=== PATIENT | female | born 1940 | race Caucasian/White ===

== ENCOUNTER 2022-04-21 15:17 | Inpatient (IN) | payer MEDICARE, BC ==
[~2022-04-21 15:17] MED LIST: Iopamidol-370 76% 500 ML 1 ML ONE
[2022-04-21 16:45] LABS: Hemoglobin 14.3 g/dL (12.0-16.0); Mean Corpuscular HGB CONC 33.5 g/dL (32.0-36.0); Mean Corpuscular Hemoglobin 30.9 pg (27.0-31.0); Mean Corpuscular Volume 92.3 fL (78.0-98.0); Mean Platelet Volume 9.3 fL (7.4-10.4); Platelet Count 159 thou/uL (130-400); RBC Distribution Width 13.1 % (11.5-14.5); Red Blood Cell (RBC) Count 4.63 mill/uL (4.20-5.40); White Blood Cell (WBC) Count 11.7 thou/uL (4.8-10.8)
[2022-04-21 16:59] LABS: ALT (SGPT) 287 U/L (8-55); AST (SGOT) 219 U/L (5-34); Albumin 3.7 g/dL (3.4-4.8); Alkaline Phosphatase 62 U/L (40-110); Anion Gap 19 mmol/L (10-20); BUN (Urea Nitrogen) 89 mg/dL (9.8-20.1); Bilirubin, Total 1.1 mg/dL (0.2-1.2); CK (CPK) 2850 U/L (29-168); Calc. Creatinine Clearance 0 mL/min (70-130); Calcium 9.3 mg/dL (7.8-10.44); Carbon Dioxide 16 mmol/L (23-31); Chloride 109 mmol/L (98-107); Estimated GFR 10; Globulin 2.8 g/dL (2.4-3.5); Glucose 98 mg/dL (83-110); Potassium 4.2 mmol/L (3.5-5.1); Protein, Total 6.5 g/dL (5.8-8.1); Sodium 140 mmol/L (136-145)
[2022-04-21 17:01] LABS: Acetaminophen Less than 10.0 mcg/mL (10.0-30.0); Alcohol Less than 10 mg/dL (Less than 10); Salicylate Less than 8.0 mg/dL (15.0-30.0)
[2022-04-21 17:10] LABS: MDiff Complete? YES
[2022-04-21 17:11] LABS: Band 13 % (5-11); Burr Cells SLIGHT = 2-5 cells (100X) (0-1/hpf); Lymphocytes 10 % (21-51); Monocytes 3 % (0-10); Neutrophil 73 % (42-75); Platelet Morphology Comment Appears Adequate; Polychromasia SLIGHT = 2-3 cells (100X) (0-2/hpf); Reactive Lymphocytes 1 % (0-10)
[2022-04-21 17:36] LABS: CKMB 45.6 ng/mL (0-6.6)
[2022-04-21] MEDS ORDERED: Morphine 4 MG/ML VIAL ONE (19:08)
[2022-04-21] MEDS ORDERED: Ondansetron PF 4 MG/2 ML Vial ONE (19:08)
[2022-04-21 22:44] LABS: Critical Call Chem Troponin I RESULT DECREASING; Troponin I 1.472 ng/mL (< 0.028)
[2022-04-21] MEDS ORDERED: Acetaminophen 325 MG TAB PO PRN (23:18)
[2022-04-21] MEDS ORDERED: Ondansetron ODT 4 MG TAB PO PRN (23:18)
[2022-04-21] MEDS ORDERED: Ondansetron PF 4 MG/2 ML Vial IVP PRN (23:18)
[2022-04-21] MEDS ORDERED: Morphine 4 MG/ML VIAL SLOW IVP PRN (23:20)
[2022-04-21 23:35] LABS: Amphetamine Not Detected (NotDetected); Barbiturates Screen Not Detected (NotDetected); Benzodiazepine Screen Not Detected (NotDetected); Cocaine Metabolite Screen Not Detected (NotDetected); Methadone Not Detected (NotDetected); Methamphetamine Not Detected (NotDetected); Opiate Screen Detected (NotDetected); Oxycodone Screen Not Detected (NotDetected); Phencyclidine (PCP) Not Detected (NotDetected); THC/Cannabinoid Screen Not Detected (NotDetected); Tricyclic Screen Not Detected (NotDetected)
[2022-04-21 23:43] LABS: Bacteria/HPF None Seen HPF (None Seen); Bilirubin Negative (Negative); Blood, Urine 3+ (Negative); Clarity Clear (Clear); Glucose, Urine (Dipstick) 100 mg/dL (Negative); Ketone, Urine Trace mg/dL (Negative); Leukocyte Negative Leu/uL (Negative); Nitrite Negative (Negative); Protein, Urine (Dipstick) 50 mg/dL (Neg-Trace); Specific Gravity, Urine 1.035 (1.002-1.036); Squamous Epithelial None Seen HPF (0-3); Urobilinogen Normal mg/dL (Less than 2); WBC/HPF 0-3 HPF (0-3); pH, Urine 5.5 (5.0-9.0)
[2022-04-22] MEDS: Lactated Ringer's 1,000 ML IV SCH ×2 (00:18→19:38)
[2022-04-22 01:29] LABS: Critical Call Chem Troponin I RESULT DECREASING; Troponin I 1.183 ng/mL (< 0.028)
[2022-04-22 02:25] VITALS: BMI 18.1
[2022-04-22] MEDS ORDERED: FLU VACC QS2022-23(65YR UP)/PF 240 MCG/0.7 ML SYRINGE IM ONE (09:00)
[2022-04-22] MEDS ORDERED: Scopolamine 1.5 mg/72 hour Patch TD PRN (12:35)
[2022-04-22] MEDS ORDERED: Lorazepam 2 MG/ML VIAL SLOW IVP PRN (12:35)
[2022-04-22] MEDS ORDERED: Lorazepam 1 MG TAB PO PRN (12:35)
[2022-04-22] MEDS ORDERED: Morphine 4 MG/ML VIAL SLOW IVP PRN (14:27)
[2022-04-23 08:12] VITALS: BP 84/62; TEMP 94.6
== END 2022-04-23 16:23 | disposition hospice, home (50) | DRG 951 ==
LOC: ERS 15:17 → ERHOLD 21:12 → OBSVTOIN 23:16 → T4-A 04-22 02:16
PROVIDERS: ADMIT Student in an Organized Health Care Education/Training Program; ATTEND Student in an Organized Health Care Education/Training Program
DX: Z51.5 Encounter for palliative care (principal); A41.9 Sepsis, unspecified organism; I21.29 ST elevation (STEMI) myocardial infarction involving other sites; I63.9 Cerebral infarction, unspecified; I31.2 Hemopericardium, not elsewhere classified; M62.82 Rhabdomyolysis; N17.9 Acute kidney failure, unspecified; Z66 Do not resuscitate; Z20.822 Contact with and (suspected) exposure to COVID-19; F17.210 Nicotine dependence, cigarettes, uncomplicated; I71.40 Abdominal aortic aneurysm, without rupture, unspecified; N20.0 Calculus of kidney; F03.90 Unspecified dementia, unspecified severity, without behavioral disturbance, psychotic disturbance, mood disturbance, and anxiety; F32.A Depression, unspecified; F41.9 Anxiety disorder, unspecified; N18.9 Chronic kidney disease, unspecified
CPT/HCPCS: 36415; 70450; 71045; 71275; 74174; 74176; 80053; 80306; 80307; 81003; 81015; 82140; 82550; 82553; 84443; 84484; 85025; 93005; 96361; 96374; 96375; G0378; J2270; J2405; J7120; Q9967; U0003; U0005